=== PATIENT | male | born 1980 | race Caucasian/White ===

== ENCOUNTER 2017-09-16 08:28 | Emergency (ER) | payer BC ==
[~2017-09-16] VITALS: Ht 190.5 cm; Wt 100.2 kg
[2017-09-16 08:37] VITALS: Ht 190.5 cm; Wt 100.2 kg
[2017-09-16] MEDS ORDERED: MECL1TAB42 PO (08:45)
[2017-09-16 09:06] VITALS: O2SAT 99
[2017-09-16] MEDS ORDERED: SODIUM CHLORIDE 0.9% 1000ML 1,000 ML IV STA (09:11)
[2017-09-16] MEDS ORDERED: KETOROLAC TROMETHAMINE 30 MG/ML VIAL IV STA (09:11)
[2017-09-16 09:22] LABS: BASO % 0.3 %; BASO ABS # 0.03 K/uL (0-0.2); EOS % 0.6 %; EOS ABS # 0.06 K/uL (0-0.5); HEMATOCRIT 47.5 % (42-52); HEMOGLOBIN 16.9 g/dL (14.0-18.0); IG# 0.02 K/uL (0.00-0.02); LYMPH % 16.2 %; LYMPH ABS # 1.52 K/uL (1.2-3.4); MEAN CELL VOLUME 84.2 fL (80-100); MEAN CORPUSCULAR HGB CONC 35.6 g/dl (32-36); MEAN PLATELET VOLUME 10.7 fL (7.4-10.4); MONO % 6.2 %; MONO ABS # 0.58 K/uL (0.11-0.59); NEUT % 76.5 %; NEUT ABS # 7.19 K/uL (1.4-6.5); PLATELET COUNT 221 K/uL (130-400); RED CELL DISTRIBUTION WIDTH CV 13.2 % (11.5-14.5); RED CELL DISTRIBUTION WIDTH SD 40.3 fL (36.4-46.3)
[2017-09-16 09:38] LABS: CALCIUM 9.2 mg/dl (8.5-10.1); CREATININE 1.21 mg/dl (0.60-1.40); POTASSIUM 3.9 mmol/L (3.5-5.1)
--- NOTE | 2017-09-16 10:09 | DIAGNOSTIC IMAGING REPORT ---
MRI OF THE BRAIN WITHOUT IV CONTRAST CLINICAL HISTORY: Headache. Right facial paralysis. COMPARISON STUDY: No priors. TECHNIQUE: MRI of the brain was performed utilizing various T1 and T2-weighted sequences in the axial, sagittal, and coronal planes. IV contrast was not administered for this examination. FINDINGS: Brain parenchyma: The brain parenchyma is normal in appearance. There is no hemorrhage or mass effect. There is no restricted diffusion to suggest acute ischemia. Dodd-white matter differentiation is preserved. No extra-axial fluid collection is seen. The cerebellar tonsils are normal in configuration. Ventricles, sulci, and cisterns: Normal in configuration. Pituitary and sella: Unremarkable. Intracranial vasculature: Normal flow voids are maintained at the skull base. Orbits: The bony orbits are grossly intact. Orbital contents are normal in appearance. Sinuses and mastoids: Clear. Calvarium: Unremarkable. Cervical cord: Partially visualized cervical spinal cord is normal in morphology and signal intensity. IMPRESSION: No acute intracranial abnormality. Electronically signed by: Sajan Florian M.D. 09/16/2017 10:07 AM Dictated Date/Time: 09/16/2017 10:05 AM
[2017-09-16] MEDS ORDERED: OXYCODONE HCL IR 5 MG TAB (IMMEDIATE RELEASE) PO STA (10:23)
[2017-09-16] MEDS ORDERED: PRED20TA PO (11:10)
[2017-09-16] MEDS ORDERED: OXYC1TAB3 PO (11:10)
[2017-09-16] MEDS ORDERED: VALA1TAB31 PO (11:10)
[2017-09-16] MEDS ORDERED: ARTIFICIAL TEARS OP OINT 3.5 GM TUBE OP ONE (11:15)
[2017-09-16 11:27] VITALS: BP 139/75; PULSE 83; TEMP 36.8; O2SAT 100
[2017-09-16] MEDS ORDERED: HYDR-5688 PO (11:45)
--- NOTE | 2017-09-16 15:16 | EMERGENCY ROOM VISIT NOTE ---
History Report prepared by Eladia: Homar Dueñas Under the Supervision of: Dr. Heriberto Moya M.D. First contact with patient: 08:46 Chief Complaint: HEADACHE Stated Complaint: SEVERE HEADACHE,RIGHT SIDE OF FACE NUMB History of Present Illness The patient is a 37 year old male who presents to the Emergency Room with complaints of a worsening headache that began 2 days ago. Patient describes the pain as a 7/10 in severity. He states that the headache came on gradually. Patient states the headache "wasn't real bad" 2 days ago. He adds that yesterday he woke up with right sided facial numbness. Patient states that he has been unable to drink because "it will dribble down" the side of his mouth. He states that the headache has been getting worse the past 2 days but the facial numbness has stayed the same. Patient states that the headache is located right behind his eyes and forehead. He states that he took Ibuprofen but it did not relieve the symptoms. Patient adds that he has stiffness in lower back. Patient states that he has a history of migraines. He adds that he had a migraine a week ago where he saw "halos on things" but that it gradually went away after he let it run its course. Patient states that he spends a lot of time outside but has not noticed any tick bites. 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 Patient states that he does not see a family doctor. He states that his last doctor visit was at [facility] in [place]. He denies any recent trauma to his head. He denies any loss of strength in his arms and legs. Pt denies LOC, fevers, chills, diaphoresis, visual changes, neck pain, chest pain, breathing difficulties, nausea, vomiting, abdominal pain, melena, hematochezia, urinary symptoms, lymphadenopathy, rash, or other complaints. Source of History: patient Onset: 2 days ago Position: head Timing: worsening Modifying Factors (Relieving): other (None) Associated Symptoms: + back pain (Stiffness), + numbness Review of Systems See HPI for pertinent positives and negatives. A total of ten systems were reviewed and were otherwise negative. Past Medical & Surgical Medical Problems: (1) Migraine Surgical Problems: (1) H/O arthroscopic knee surgery Family History Cancer Social History Smoking Status: Never Smoker Housing Status: lives alone Current/Historical Medications Scheduled Prednisone (Prednisone), 3 TABS PO DAILY Valacyclovir Hcl (Valtrex), 1 GM PO TID Scheduled PRN Hydrocodone/Acetaminophen 5MG/325MG ([place] 5MG/325MG), 1-2 TABS PO Q6H PRN for Pain Meclizine Hcl (Meclizine Hcl), 25 MG PO TID PRN for Dizziness or Vertigo Allergies Coded Allergies: No Known Allergies (Unverified , 09/16/17) Physical Exam Vital Signs Date Time Temp Pulse Resp B/P (MAP) Pulse Ox O2 Delivery O2 Flow Rate FiO2 09/16/17 11:27 36.8 83 16 139/75 100 09/16/17 11:10 83 16 139/75 100 Room Air 09/16/17 09:45 98 09/16/17 09:07 93 16 142/84 Room Air 09/16/17 09:06 99 Room Air 09/16/17 08:37 36.8 97 20 134/80 97 Room Air Physical Exam GENERAL: Awake, alert, well-appearing, in no distress HENT: Atraumatic. Oropharynx unremarkable. EYES: Normal conjunctiva. Sclera non-icteric. PERRLA. EOMI. NECK: Supple. No nuchal rigidity. FROM. No masses. RESPIRATORY: Clear to auscultation. No wheezes. No rales. Normal respiratory effort. CARDIAC: Normal rate. Normal rhythm. No murmurs. No rubs. Extremities warm and well perfused. Pulses equal. No JVD. GI: Soft, non-distended. No tenderness to palpation. No rebound or guarding. No masses. RECTAL: Deferred. MUSCULOSKELETAL: Atraumatic. Chest examination reveals no tenderness. The back is symmetrical on inspection without obvious abnormality. There is no CVA tenderness to palpation. No joint edema. LOWER EXTREMITIES: Calves are equal size bilaterally and non-tender. No edema. No discoloration. NEURO: Normal sensorium. No sensory deficits noted. Facial weakness on the right side. Forehead is not spared. No drift. Normal rapid alternating movements. Normal heel to em. SKIN: No rash or jaundice noted. Medical Decision & Procedures ER Provider Diagnostic Interpretation: Radiology results as stated below per my review and radiologist interpretation: MRI OF THE BRAIN WITHOUT IV CONTRAST CLINICAL HISTORY: Headache. Right facial paralysis. COMPARISON STUDY: No priors. TECHNIQUE: MRI of the brain was performed utilizing various T1 and T2-weighted sequences in the axial, sagittal, and coronal planes. IV contrast was not administered for this examination. FINDINGS: Brain parenchyma: The brain parenchyma is normal in appearance. There is no hemorrhage or mass effect. There is no restricted diffusion to suggest acute ischemia. Dodd-white matter differentiation is preserved. No extra-axial fluid collection is seen. The cerebellar tonsils are normal in configuration. Ventricles, sulci, and cisterns: Normal in configuration. Pituitary and sella: Unremarkable. Intracranial vasculature: Normal flow voids are maintained at the skull base. Orbits: The bony orbits are grossly intact. Orbital contents are normal in appearance. Sinuses and mastoids: Clear. Calvarium: Unremarkable. Cervical cord: Partially visualized cervical spinal cord is normal in morphology and signal intensity. IMPRESSION: No acute intracranial abnormality. Electronically signed by: Sajan Florian M.D. 09/16/2017 10:07 AM Laboratory Results 09/16/17 09:00 Red Blood Count 5.64, Mean Corpuscular Volume 84.2, Mean Corpuscular Hemoglobin 30.0, Mean Corpuscular Hemoglobin Concent 35.6, Mean Platelet Volume 10.7, Neutrophils (%) (Auto) 76.5, Lymphocytes (%) (Auto) 16.2, Monocytes (%) (Auto) 6.2, Eosinophils (%) (Auto) 0.6, Basophils (%) (Auto) 0.3, Neutrophils # (Auto) 7.19, Lymphocytes # (Auto) 1.52, Monocytes # (Auto) 0.58, Eosinophils # (Auto) 0.06, Basophils # (Auto) 0.03 09/16/17 09:00 Test 09/16/17 09:00 White Blood Count 9.40 K/uL (4.8-10.8) Red Blood Count 5.64 M/uL (4.7-6.1) Hemoglobin 16.9 g/dL (14.0-18.0) Hematocrit 47.5 % (42-52) Mean Corpuscular Volume 84.2 fL (80-100) Mean Corpuscular Hemoglobin 30.0 pg (25-34) Mean Corpuscular Hemoglobin Concent 35.6 g/dl (32-36) Platelet Count 221 K/uL (130-400) Mean Platelet Volume 10.7 fL (7.4-10.4) Neutrophils (%) (Auto) 76.5 % Lymphocytes (%) (Auto) 16.2 % Monocytes (%) (Auto) 6.2 % Eosinophils (%) (Auto) 0.6 % Basophils (%) (Auto) 0.3 % Neutrophils # (Auto) 7.19 K/uL (1.4-6.5) Lymphocytes # (Auto) 1.52 K/uL (1.2-3.4) Monocytes # (Auto) 0.58 K/uL (0.11-0.59) Eosinophils # (Auto) 0.06 K/uL (0-0.5) Basophils # (Auto) 0.03 K/uL (0-0.2) RDW Standard Deviation 40.3 fL (36.4-46.3) RDW Coefficient of Variation 13.2 % (11.5-14.5) Immature Granulocyte % (Auto) 0.2 % Immature Granulocyte # (Auto) 0.02 K/uL (0.00-0.02) Erythrocyte Sedimentation Rate 7 mm/hr (0-14) Anion Gap 6.0 mmol/L (3-11) Est Creatinine Clear Calc Drug Dose 100.9 ml/min Estimated GFR () 88.7 Estimated GFR (Non- 76.6 BUN/Creatinine Ratio 16.0 (10-20) Calcium Level 9.2 mg/dl (8.5-10.1) Lyme Disease IgG Antibody NEG (NEG) Lyme Disease IgM Antibody NEG (NEG) Laboratory results reviewed by me Medications Administered Medications (Trade) Dose Ordered Sig/Michelle Route Start Time Stop Time Status Last Admin Dose Admin Sodium Chloride 1,000 ml @ 999 mls/hr Q1H1M STAT IV 09/16/17 09:11 09/16/17 10:11 DC 09/16/17 09:24 999 MLS/HR Ketorolac Tromethamine (Toradol Inj) 10 mg NOW STAT IV 09/16/17 09:11 09/16/17 09:15 DC 09/16/17 09:26 10 MG Prednisone (PredniSONE TAB) 60 mg NOW STAT PO 09/16/17 10:23 09/16/17 10:25 DC 09/16/17 10:47 60 MG Valacyclovir HCl (Valtrex Tab) 1,000 mg NOW ONCE PO 09/16/17 10:30 09/16/17 10:31 DC 09/16/17 10:48 1,000 MG Oxycodone HCl (Roxicodone Immediate Rel Tab) 5 mg NOW STAT PO 09/16/17 10:23 09/16/17 10:25 DC 09/16/17 10:47 5 MG Artificial Tears (Lacri-Lube Oph Oint) 1 appln NOW ONCE OP 09/16/17 11:15 09/16/17 11:16 DC 09/16/17 11:22 1 APPLN ECG Per My Interpretation Indication: weakness Rate (beats per minute): 89 Rhythm: normal sinus Findings: no acute ischemic change, no ectopy ED Course 0850: The patient was evaluated in room B4B. A complete history and physical exam was performed. 0911: Toradol Inj 10mg IV and Sodium Chloride 1000 ml @ 999 mls/hr IV. 1023: Oxycodone HCl 5mg PO and Prednisone 60mg PO. 1030: Valtrex Tab 1000mg PO. 1115: Artificial Tears 1 appln OP 1120: I reevaluated the patient. Discussed results and discharge instructions. He verbalized understanding and agreement. The patient is ready for discharge. 1145: Pharmacy states that they are out of oxycodone. Medical Decision Prior records/ancillary studies reviewed and summarized above. Nursing notes reviewed and agree them. The patient's history was concerning for weakness. Differential diagnosis: Etiologies such as Conner's palsy, TIA, CVA, brain tumor, metabolic, infection, hypo/hyperglycemia, electrolyte abnormalities, cardiac sources, intracerebral event, toxicologic, neurologic, as well as others were entertained. Physical examination: As above. Consistent with Conner's palsy. No nuchal rigidity or meningeal findings. ER treatment provided: IV Lock Hydration with saline Toradol Oxycodone On reassessment the patient felt better. Lacri-Lube Prednisone Valtrex Diagnostics interpretation by me: ECG: Normal The labs revealed an unremarkable CBC and chemistry panel. Lyme titer negative. Imaging studies: MRI as above Consultation: A consultation was placed with the neurologist on-call, Dr. Leti Baer. The case was discussed and diagnostics were reviewed. The patient has findings consistent with Conner's palsy. She was in agreement. She recommended treatment with prednisone, Valtrex, and close follow-up in the office. By the evaluation outlined above other emergent etiologies such as those listed in the differential, as well as others, were deemed relatively unlikely. The patient was educated about the findings as listed above. All questions were answered and the patient was pleased with the treatment. Return instructions were outlined and the patient was discharged in stable condition. The patient was referred to the [facility] outpatient clinic for follow-up for a recheck of the current condition. Medication Reconcilliation Current Medication List: was personally reviewed by me Blood Pressure Screening Patient's blood pressure: Elevated blood pressure Blood pressure disposition: Referred to PCP Consults Time Called: 1015 Consulting Physician[facility] Returned Call: [phone] Discussed the patient's case. Dr. Baer agreed with the workup for the patient. Impression Primary Impression: Conner's palsy Additional Impression: Headache Scribe Attestation The scribe's documentation has been prepared under my direction and personally reviewed by me in its entirety. I confirm that the note above accurately reflects all work, treatment, procedures, and medical decision making performed by me. Departure Information Dispostion Home / Self-Care Prescriptions Hydrocodone/Acetaminophen 5MG/325MG ([place] 5MG/325MG) Tab 1-2 TABS PO Q6H Y for Pain, #15 TAB Prov: Heriberto Moya MD 09/16/17 Valacyclovir Hcl (VALTREX) 1 Gm Tab 1 GM PO TID, #20 TAB Prov: Heriberto Moya MD 09/16/17 Prednisone (Prednisone) 20 Mg Tab 3 TABS PO DAILY for 6 Days, #18 TAB 3 TABS DAILY FOR 2 DAYS, THEN 2 TABS DAILY FOR 2 DAYS, THEN 1 TAB DAILY FOR 2 DAYS, THEN 1/2 TAB DAILY FOR 2 DAYS. Prov: Heriberto Moya MD 09/16/17 Referrals No Doctor, Assigned (PCP) Forms HOME CARE DOCUMENTATION FORM, IMPORTANT VISIT INFORMATION Patient Instructions ED [facility] [facility] Additional Instructions Prednisone 60 mg: Once daily until the prescription is finished. Valtrex 1000 mg 3 times a day for 1 week. Lacri-Lube eye ointment for moisturizing your right eye as needed. It is advised to use this before bed. If the eyelid is not staying closed use the medical tape as discussed. Oxy IR 5mg: Take 1-2 pills every 4 hours as needed for pain. Avoid alcohol, operating machinery or dangerous equipment, working on ladders or roofs, DRIVING , or situations where being under the influence may be dangerous. It is recommended to use a stool softener such as Colace, 100mg twice daily while taking this medication to avoid constipation. Tylenol: Take 1000 mg every 6 hours as needed for pain. Do not take more than 3000 mg in a 24 hour period. And/or Ibuprofen(Motrin, Advil) may be used for fever or pain. Use 600mg every six hours as needed. Take with food. Avoid using more than 2400mg in a 24 hour period. Do not use 2400mg per day for more than three consecutive days without physician direction. Prolonged inappropriate use can lead to stomach upset or ulcers. Follow-up with the [facility] primary clinic this week. Call them tomorrow. The number is listed below under Dr. Oleary. Discussed repeat Lyme testing, the Conner's palsy, and primary care. Return to the ER for worsening headache, passing out, difficulty breathing, fevers, numbness, tingling, worsening of your condition, or as needed. Problem Qualifiers
== END 2017-09-16 11:28 | disposition home or self-care (01) ==
LOC: C.EDB 08:31
DX: G51.0 Bell's palsy (principal); R51 Headache